=== PATIENT | female | born 1965 | race American Indian/Alaskan Native ===

== ENCOUNTER 2017-02-01 11:18 | Outpatient (CLI) | payer BC ==
--- NOTE | 2017-02-01 16:17 | Mammography Report ---
RIGHT DIGITAL DIAGNOSTIC MAMMOGRAM : 02/01/17 11:18:00 CLINICAL: Recalled for asymmetry. COMPARISON: screening FINDINGS: Lateralmedial and spot compression MLO views were performed and demonstrate satisfactory effacement of the asymmetry. IMPRESSION: Negative Mammogram. BI-RADS CATEGORY: 1 -- Negative RECOMMENDATION: Routine mammographic screening in one year. ACR BI-RADS MAMMOGRAPHIC CODES: 0 = Needs additional imaging evaluation; 1 = Negative; 2 = Benign; 3 = Probably benign; 4 = Suspicious; 5 = Malignant; 6 = Known biopsy-proven malignancy COMMENT: 1. Dense breast tissue, i.e., adenosis, fibrocystic changes, etc., may obscure an underlying neoplasm. 2. Approximately 10% of cancers are not detected with mammography. 3. A negative mammography report should not delay biopsy if a clinically suspicious mass is present. COMMENT: Patient follow-up letters are generated via our [employer] application.
== END 2017-02-01 11:19 | disposition home or self-care (01) ==
LOC: MAMMO 11:18
PROVIDERS: ATTEND Family Medicine
DX: R92.0 Mammographic microcalcification found on diagnostic imaging of breast (principal); R92.8 Other abnormal and inconclusive findings on diagnostic imaging of breast
CPT/HCPCS: G0206-RT